=== PATIENT | male | born 2000 | race Two or more races ===

== ENCOUNTER 2024-11-01 17:57 | Emergency (ER) | payer OTHER ==
[2024-11-01 18:08] VITALS: BP 106/58; PULSE 64; RESP 18; TEMP 97.9; BMI 18.3
[2024-11-01 19:11] LABS: ABSOLUTE IMMATURE GRANULOCYTES 0.03 x10^3/uL (0.0-0.031); BASOPHILS # 0.03 x10^3/uL (0.01-0.08); EOSINOPHIL % 8.3 % (0.8-7.0); EOSINOPHILS # 0.72 x10^3/uL (0.04-0.54); HEMATOCRIT 40.3 % (40.1-51.0); HEMOGLOBIN 12.8 g/dL (13.7-17.5); MCHC 31.8 g/dl (32.3-36.5); MEAN CELL VOLUME 87.8 fl (79.0-92.2); MEAN PLT VOLUME 10.3 fl (9.4-12.4); MONOCYTE % 10.4 % (5.3-12.2); PLATELET COUNT 219 x10^3/uL (163-337); RDW 12.9 % (11.9-15.3)
[2024-11-01 19:34] LABS: CHLORIDE 105 mmol/L (98-107); SODIUM 134 mmol/L (136-145)
[2024-11-01 19:37] LABS: CALCIUM 8.7 mg/dL (8.5-10.1)
[2024-11-01 19:38] LABS: ALBUMIN 3.4 g/dl (3.4-5.0); BLOOD UREA NITROGEN 9.2 mg/dL (7-18); CO2 28 mmol/L (21-32); GLUCOSE,RANDOM 87 mg/dL (74-106)
[2024-11-01 19:41] LABS: CREATININE 1.1 mg/dL (0.55-1.3); SGOT/AST 70 U/L (15-37)
[2024-11-01 19:42] LABS: BILIRUBIN,TOTAL 0.8 mg/dL (0.2-1); TOT PROT 7.3 g/dl (6.4-8.2)
[2024-11-01 19:44] LABS: ALK PHOS 81 U/L (45-117)
[2024-11-01] MEDS ORDERED: CLINDAMYCIN 600MG PREMIX IVPB 600 MG/50 ML BAG IVPB ONE (19:51)
[2024-11-01] MEDS: CLINDAMYCIN 600MG PREMIX IVPB 600 MG/50 ML BAG IVPB ONE (20:02)
[2024-11-01 20:44] LABS: ANION GAP 1 mmol/L (4-13); POTASSIUM 9.2 mmol/L (3.5-5.1); SGPT/ALT 32 U/L (13-61)
== END 2024-11-01 20:48 | disposition home or self-care (01) ==
LOC: JER 17:57
DX: L03.114 Cellulitis of left upper limb (principal)
CPT/HCPCS: 36415; 73090-TC-LT-FY; 80053; 85025; 87070; 87205; 99284-25